=== PATIENT | male | born 1950 | race Hispanic/Latino ===

== ENCOUNTER 2022-09-24 16:02 | Inpatient (IN) | payer MEDICARE ==
[2022-09-24 16:27] LABS: #Basophils 0.1 thou/uL (0.0-0.2); #Eosinphils 0.1 thou/uL (0.0-0.7); #Monocytes 0.7 thou/uL (0.11-0.59); #Neutrophils 5.2 thou/uL (1.40-6.50); %Basophils 0.6 % (0.0-1.0); %Eosinophils 1.3 % (0.0-10.0); %Lymphocytes 21.1 % (21.0-51.0); %Monocytes 8.4 % (0.0-10.0); %Neutrophils 67.8 % (42.0-75.0); Mean Corpuscular HGB CONC 33.9 g/dL (32.0-36.0); Mean Corpuscular Hemoglobin 30.2 pg (27.0-31.0); Mean Corpuscular Volume 89.2 fl (78.0-98.0); Mean Platelet Volume 8.7 fL (7.4-10.4); Platelet Count 233 10x3/uL (130-400); RBC Distribution Width 13.6 % (11.5-14.5); Red Blood Cell (RBC) Count 5.29 mill/uL (4.70-6.10); White Blood Cell (WBC) Count 7.7 10x3/uL (4.8-10.8)
[2022-09-24 16:56] LABS: ALT (SGPT) 20 U/L (8-55); AST (SGOT) 17 U/L (5-34); Albumin 4.4 g/dL (3.4-4.8); Alkaline Phosphatase 72 U/L (40-110); Anion Gap 13 mmol/L (10-20); BUN (Urea Nitrogen) 15 mg/dL (8.4-25.7); Bilirubin, Total 0.5 mg/dL (0.2-1.2); CK (CPK) 137 U/L (30-200); Calc. Creatinine Clearance 0 mL/min (70-130); Calcium 9.7 mg/dL (7.8-10.44); Carbon Dioxide 23 mmol/L (23-31); Chloride 106 mmol/L (98-107); Estimated GFR 79; Globulin 2.7 g/dL (2.4-3.5); Glucose 116 mg/dL (83-110); Magnesium 2.4 mg/dL (1.6-2.6); Potassium 4.3 mmol/L (3.5-5.1); Protein, Total 7.1 g/dL (5.8-8.1); Sodium 138 mmol/L (136-145)
[2022-09-24] MEDS ORDERED: Aspirin 325 MG TAB ONE (19:08)
[2022-09-24 20:06] LABS: Bacteria/HPF None Seen HPF (None Seen); Bilirubin Negative (Negative); Blood, Urine Negative (Negative); CAUTI Indications for Culture Alt mental st,lethar; Clarity Clear (Clear); Glucose, Urine (Dipstick) Normal (Negative); Ketone, Urine Negative (Negative); Leukocyte Negative Leu/uL (Negative); Nitrite Negative (Negative); Protein, Urine (Dipstick) Negative (Neg-Trace); RBC/HPF None Seen HPF (0-3); Specific Gravity, Urine 1.017 (1.002-1.036); Squamous Epithelial None Seen HPF (0-3); Urobilinogen Normal mg/dL (Less than 2); WBC/HPF 0-3 HPF (0-3); pH, Urine 5.5 (5.0-9.0)
[2022-09-24 20:12] LABS: Urine Culture Reflex No No
[2022-09-24] MEDS ORDERED: hydrALAZINE 20 MG/ML VIAL SLOW IVP PRN (21:33)
[2022-09-24] MEDS ORDERED: Acetaminophen 650 MG Suppository PR PRN (21:33)
[2022-09-24] MEDS ORDERED: Acetaminophen 325 MG TAB PO PRN (21:33)
[2022-09-24] MEDS ORDERED: Ondansetron ODT 4 MG TAB PO PRN (21:33)
[2022-09-24] MEDS ORDERED: Ondansetron PF 4 MG/2 ML Vial IVP PRN (21:33)
[2022-09-24 22:44] LABS: Anion Gap 12 mmol/L (10-20); BUN (Urea Nitrogen) 15 mg/dL (8.4-25.7); Calc. Creatinine Clearance 81 mL/min (70-130); Calcium 9.4 mg/dL (7.8-10.44); Carbon Dioxide 27 mmol/L (23-31); Chloride 103 mmol/L (98-107); Estimated GFR 76; Glucose 102 mg/dL (83-110); Potassium 4.2 mmol/L (3.5-5.1); Sodium 138 mmol/L (136-145)
[2022-09-25 04:45] LABS: #Eosinphils 0.3 thou/uL (0.0-0.7); #Monocytes 0.5 thou/uL (0.11-0.59); #Neutrophils 4.1 thou/uL (1.40-6.50); %Basophils 0.3 % (0.0-1.0); %Eosinophils 4.2 % (0.0-10.0); %Lymphocytes 23.1 % (21.0-51.0); %Monocytes 7.6 % (0.0-10.0); %Neutrophils 63.9 % (42.0-75.0); Hemoglobin 15.1 g/dL (14.0-18.0); Mean Corpuscular HGB CONC 33.4 g/dL (32.0-36.0); Mean Corpuscular Hemoglobin 30.3 pg (27.0-31.0); Mean Corpuscular Volume 90.6 fl (78.0-98.0); Mean Platelet Volume 8.7 fL (7.4-10.4); Platelet Count 220 10x3/uL (130-400); RBC Distribution Width 13.9 % (11.5-14.5); Red Blood Cell (RBC) Count 4.99 mill/uL (4.70-6.10); White Blood Cell (WBC) Count 6.5 10x3/uL (4.8-10.8)
[2022-09-25 04:51] LABS: Hemoglobin A1c 6.6 % (4.0-6.0)
[2022-09-25 05:15] LABS: Cardiac Risk 3.8 (Less than 4.5)
[2022-09-25] MEDS: Aspirin 81 mg Enteric Coated Tablet PO SCH (08:08)
[2022-09-25] MEDS ORDERED: Fioricet 325/50/40 mg Tablet PO PRN (11:21)
[2022-09-25] MEDS: Atorvastatin Calcium 40 MG TAB PO SCH (20:26)
[2022-09-26] MEDS: Aspirin 81 mg Enteric Coated Tablet PO SCH (09:25)
[2022-09-26] MEDS ORDERED: Iopamidol-370 76% 500 ML MDV (1 ML CHARGE) ONE (13:00)
[2022-09-26] MEDS: Atorvastatin Calcium 40 MG TAB PO SCH (20:40)
[2022-09-26 23:36] VITALS: BMI 34.7
[2022-09-27] MEDS: Aspirin 81 mg Enteric Coated Tablet PO SCH (08:02)
[2022-09-27] MEDS ORDERED: Aspirin 81 mg Enteric Coated Tablet PO SCH (09:15)
[2022-09-27] MEDS ORDERED: Clopidogrel Bisulfate 75 MG TAB PO SCH (09:45)
[2022-09-27] MEDS: CEFAZOLIN 2 GM in Sodium Chloride 0.9% 100 ML IVPB SCH ×2 (13:53→21:35)
[2022-09-27] MEDS: Atorvastatin Calcium 40 MG TAB PO SCH (21:36)
[2022-09-28] MEDS: CEFAZOLIN 2 GM in Sodium Chloride 0.9% 100 ML IVPB SCH ×3 (05:45→21:05)
[2022-09-28] MEDS ORDERED: Sevoflurane 250 ML INH ANEST BOTTLE ONE (06:28)
[2022-09-28] MEDS ORDERED: fentaNYL 50 mcg/mL 1 mL Vial ONE ×2 (06:37→08:40)
[2022-09-28] MEDS ORDERED: Norepinephrine 4 MG/4 ML VIAL ONE (06:38)
[2022-09-28] MEDS ORDERED: fentaNYL PF 100 MCG/2 ML SYRINGE ONE (06:38)
[2022-09-28] MEDS ORDERED: Lidocaine 2% 6 ML (Jelly) SYR ONE (06:38)
[2022-09-28] MEDS ORDERED: Nitroglycerin 50 MG/250 ML BOT 0 ML ONE (06:38)
[2022-09-28] MEDS ORDERED: Protamine Sulfate 50 MG/5 ML VIAL ONE (06:56)
[2022-09-28] MEDS ORDERED: Heparin 5,000 UNITS/ML VIAL ONE (06:56)
[2022-09-28] MEDS ORDERED: ePHEDrine Sulfate 50 MG/10 ML VIAL ONE (07:00)
[2022-09-28] MEDS ORDERED: PHENYLEPHRINE-NS 100 MCG/ML 10 ML SYRINGE ONE (07:00)
[2022-09-28] MEDS ORDERED: Ondansetron PF 4 MG/2 ML Vial ONE (07:00)
[2022-09-28] MEDS ORDERED: Dexamethasone 20 MG/5 ML VIAL ONE (07:00)
[2022-09-28] MEDS ORDERED: Lidocaine 1% PF 5 ML VIAL ONE (07:00)
[2022-09-28] MEDS ORDERED: Labetalol HCl 100 MG/20 ML VIAL ONE (07:00)
[2022-09-28] MEDS ORDERED: PROPOFOL 200 MG/20 ML VIAL ONE (07:00)
[2022-09-28] MEDS ORDERED: Glycopyrrolate 0.2 MG/ML 5 ML SYRINGE ONE (07:00)
[2022-09-28] MEDS ORDERED: Rocuronium Bromide 10 MG/ML (10ML VIAL) ONE (07:00)
[2022-09-28] MEDS ORDERED: CEFAZOLIN 1 GM VIAL SLOW IVP SCH (08:00)
[2022-09-28] MEDS ORDERED: Clopidogrel Bisulfate 75 MG TAB PO SCH (09:00)
[2022-09-28] MEDS ORDERED: Bupivacaine 0.25% HCL 30 ML VIAL ONE (10:20)
[2022-09-28] MEDS ORDERED: SUGAMMADEX SODIUM 200 MG/2 ML VIAL ONE (10:20)
[2022-09-28] MEDS ORDERED: EPINEPHrine 1 MG/10 ML Abboject SYRINGE ONE (10:20)
[2022-09-28] MEDS ORDERED: traMADol HCl 50 MG TAB PO PRN (11:29)
[2022-09-28] MEDS ORDERED: niCARdipine 25 MG in Sodium Chloride 0.9% 250 ML 250 ML IVPB PRN (11:29)
[2022-09-28] MEDS ORDERED: Phenylephrine 40 MG in Sodium Chloride 0.9% 250 ML 250 ML IVPB PRN (11:29)
[2022-09-28] MEDS ORDERED: Ondansetron PF 4 MG/2 ML Vial IVP PRN (11:29)
[2022-09-28] MEDS ORDERED: fentaNYL 50 mcg/mL 1 mL Vial SLOW IVP PRN ×2 (11:29)
[2022-09-28] MEDS ORDERED: Ipratropium/Albuterol 3 ML NEB NEB PRN (11:29)
[2022-09-28] MEDS ORDERED: Sodium Chloride 0.9% 1,000 ML IV SCH (11:30)
[2022-09-28] MEDS ORDERED: Ondansetron HCl/PF 4 MG/2 ML Vial IVP PRN (11:39)
[2022-09-28] MEDS ORDERED: Acetaminophen 325 MG TAB ONE (12:50)
[2022-09-28] MEDS: Acetaminophen 325 MG TAB PO PRN ×2 (12:52→21:04)
[2022-09-28] MEDS: Aspirin 325 mg Enteric Coated Tablet PO SCH (14:13)
[2022-09-28] MEDS: Atorvastatin Calcium 40 MG TAB PO SCH (21:04)
[2022-09-29] MEDS: Acetaminophen 325 MG TAB PO PRN (06:03)
[2022-09-29] MEDS: CEFAZOLIN 2 GM in Sodium Chloride 0.9% 100 ML IVPB SCH (06:03)
[2022-09-29 07:16] VITALS: TEMP 99.8
[2022-09-29] MEDS: Aspirin 325 mg Enteric Coated Tablet PO SCH (08:01)
[2022-09-29 13:22] VITALS: BP 154/92
== END 2022-09-29 12:00 | disposition home health service (06) | DRG 38 ==
LOC: ERS 16:02 → 2SE 19:48 → OBSVTOIN 09-25 13:44 → CCU 09-28 09:57
PROVIDERS: ADMIT Student in an Organized Health Care Education/Training Program; ATTEND Internal Medicine
PROC: 03CL0ZZ Extirpation of Matter from Left Internal Carotid Artery, Open Approach (ICD-10-PCS; principal; 2022-09-28)
PROC: 03UL0KZ Supplement Left Internal Carotid Artery with Nonautologous Tissue Substitute, Open Approach (ICD-10-PCS; 2022-09-28)
DX: I63.032 Cerebral infarction due to thrombosis of left carotid artery (principal); G93.49 Other encephalopathy; I77.2 Rupture of artery; R29.701 NIHSS score 1; F10.10 Alcohol abuse, uncomplicated; G51.0 Bell's palsy; I10 Essential (primary) hypertension; E78.5 Hyperlipidemia, unspecified; Z79.82 Long term (current) use of aspirin; Z79.899 Other long term (current) drug therapy; Z90.49 Acquired absence of other specified parts of digestive tract
CPT/HCPCS: 36415; 70450; 70496; 70498; 70551; 71045; 80053; 80061; 81001; 82550; 83036; 83735; 84484; 85025; 93005; 93306; 93880; 94760; C1768; G0378; J0171; J1100; J1642; J1644; J2405; J2704; J2720; J3010; J3490; J7050; Q9967; S0020